=== PATIENT | female | born 1995 | race Caucasian/White ===

== ENCOUNTER 2018-01-14 03:36 | Inpatient (IN) | payer BC ==
[~2018-01-14] VITALS: Ht 162.6 cm; Wt 57.6 kg
--- NOTE | ~2018-01-14 | PROC ---
[address] [address] PROCEDURE REPORT Name: JUVENCIO ANDERSON Room: [address] IN M.R.#: [id number] Admission: 01/14/18 Attend Phys: Agustín Abdul MD Discharge: 01/15/18 Date of : [birth year] Report #: [id number] THIS REPORT FOR: //name// For GI report, please see the Provation report in [employer] content. By: [id number] Records Staff PAULINA /RANJANA
[2018-01-14 03:46] VITALS: BP 116/60
[2018-01-14 04:07] LABS: ABSOLUTE BASOPHILS 0.1 thou/uL (0.0-0.2); ABSOLUTE EOSINOPHILS 0.3 thou/uL (0.0-0.7); ABSOLUTE LYMPHOCYTES 4.1 thou/uL (0.8-5.3); ABSOLUTE MONOCYTES 0.9 thou/uL (0.0-1.2); BASOPHILS 0.4 %; HEMATOCRIT 40.6 % (37.0-47.0); HEMOGLOBIN 13.6 gm/dL (12.0-15.0); MCH 32.3 pg (26.0-34.0); MCHC 33.4 g/dL (28.0-37.0); MCV 96.7 fL (80.0-100.0); MONOCYTES 5.4 %; MPV 8.6 fl. (7.2-11.1); NUCLEATED RBCS 0 /100WBC; PLATELET COUNT* 286 thou/uL (150-400); POLYS 67.2 %; RDW-CV 12.6 % (10.5-14.5); WBC 16.4 thou/uL (4.0-11.0)
[2018-01-14 04:20] LABS: URINE BILIRUBIN NEGATIVE (Negative); URINE BLOOD NEGATIVE (Negative); URINE CLARITY CLEAR; URINE COLOR YELLOW; URINE GLUCOSE-RANDOM NEGATIVE (Negative); URINE KETONES 1+ (Negative); URINE NITRITE-REFLEX NEGATIVE (Negative); URINE PROTEIN NEGATIVE (Negative); URINE SPECIFIC GRAVITY >= 1.030 (1.005-1.030); URINE UROBILINOGEN 0.2 E.U./dl (0.2-1.0)
[2018-01-14 04:22] LABS: CALCIUM 8.8 mg/dL (8.5-10.1); CREATININE 0.9 mg/dL (0.6-1.3)
[2018-01-14 04:26] LABS: ALBUMIN 3.7 g/dL (3.4-5.0); TOTAL BILIRUBIN 0.3 mg/dL (<0.1-1.0); TOTAL PROTEIN 7.1 g/dL (6.4-8.2)
[2018-01-14 04:28] LABS: URINE LEUKOCYTES-REFLEX 3+ (Negative)
[2018-01-14 05:32] LABS: CASTS None Seen /LPF (None Seen); CRYSTALS None Seen /LPF (None Seen); MUCUS 4-6 Moderate strn/LPF (None Seen); SQUAMOUS 4-10 Moderate /LPF (0-3); URINE RBC 0-2 Rare /HPF (0-2)
[2018-01-14 08:37] VITALS: BP 107/61
[2018-01-14 09:00] VITALS: BP 111/72
[2018-01-14 16:00] VITALS: BP 110/44
[2018-01-14 16:03] LABS: HEMATOCRIT 35.6 % (37.0-47.0); HEMOGLOBIN 11.9 gm/dL (12.0-15.0); MCH 32.9 pg (26.0-34.0); MCHC 33.6 g/dL (28.0-37.0); MCV 97.8 fL (80.0-100.0); MPV 8.6 fl. (7.2-11.1); RBC 3.64 mil/uL (4.20-5.00); WBC 8.9 thou/uL (4.0-11.0)
[2018-01-14 20:45] VITALS: BP 100/65
[2018-01-15 01:21] LABS: ABSOLUTE EOSINOPHILS 0.2 thou/uL (0.0-0.7); ABSOLUTE LYMPHOCYTES 2.3 thou/uL (0.8-5.3); ABSOLUTE MONOCYTES 0.6 thou/uL (0.0-1.2); ABSOLUTE NEUTROPHILS 5.5 thou/uL (1.6-8.1); BASOPHILS 0.4 %; EOSINOPHILS 2.2 %; HEMATOCRIT 36.9 % (37.0-47.0); HEMOGLOBIN 12.2 gm/dL (12.0-15.0); LYMPHOCYTES 26.7 %; MCH 32.6 pg (26.0-34.0); MCV 98.7 fL (80.0-100.0); MONOCYTES 7.1 %; MPV 8.8 fl. (7.2-11.1); NUCLEATED RBCS 0 /100WBC; PLATELET COUNT* 231 thou/uL (150-400); POLYS 63.6 %; RBC 3.73 mil/uL (4.20-5.00); WBC 8.7 thou/uL (4.0-11.0)
[2018-01-15 01:34] LABS: CREATININE 0.7 mg/dL (0.6-1.3); MAGNESIUM 1.9 mg/dL (1.8-2.4)
[2018-01-15 01:35] LABS: POTASSIUM 5.2 mmol/L (3.5-5.1)
[2018-01-15 06:24] VITALS: BP 100/65
[2018-01-15 08:00] VITALS: BP 102/58
[2018-01-15 10:31] VITALS: BP 106/61
[2018-01-15 14:20] VITALS: BP 106/61
--- NOTE | 2018-02-05 12:52 | CON ---
[address] [address] CONSULTATION Name: MONICAJUVENCIO GRABIEL Room: [address] IN M.R.#: [id number] Admission: 01/14/18 Attend Phys: Agustín Abdul MD Discharge: 01/15/18 Date of : [birth year] Report #: [id number] THIS REPORT FOR: //name// CC: Agustín Camara DATE OF SERVICE: 01/14/2018 HISTORY OF PRESENT ILLNESS: This is a pleasant 22-year-old female with no significant past medical history who is presenting to the hospital after one day of sharp abdominal pain. The patient reports the pain started while she was watching TV at night and was sudden in onset. The patient reports pain is sharp, cramping in nature and located in the suprapubic region. The patient initially thought this was some sort of abdominal cramp and was going to resolve by itself, but the pain did not, had progressively worsened. The patient also reports subjective fever, which lasted for 1 day along with some chills. The patient denies any nausea, vomiting, diarrhea, hematemesis or hematochezia. The patient reports taking NSAIDs on a fairly regular basis at least a few days a week. PAST MEDICAL HISTORY: No significant past medical history. PAST SURGICAL HISTORY: No significant past surgical history. FAMILY HISTORY: Negative for inflammatory bowel disease or colon cancer. SOCIAL HISTORY: The patient denies smoking, alcohol or recreational drug use. REVIEW OF SYSTEMS: A comprehensive 10-point review of systems is negative except for what was mentioned in the HPI. PHYSICAL EXAMINATION: VITAL SIGNS: Temperature 36.8, pulse rate 75, respirations 12, blood pressure 110/44, pulse ox 97%. GENERAL: The patient is alert, awake, oriented x 3. HEENT: Pupils are equal, round, reactive to light and accommodation. Mucous membranes are moist. There is no congestion. LUNGS: Clear to auscultation bilaterally. CARDIOVASCULAR: Rate and rhythm regular, S1, S2 present. ABDOMEN: Soft. There is no tenderness, no guarding, no rigidity. EXTREMITIES: Warm and well perfused. SKIN: Warm and dry. There is no focal neurological deficit. LABORATORY DATA: Hemoglobin 10.6, hematocrit 35.6, platelet count 212, WBC count 8.9. Sodium 137, potassium ____ chloride 102, bicarbonate 23, BUN 10, creatinine ____ AST 14, ALT 16, alkaline phosphatase 74, lipase [place] [address] CONSULTATION Name: JUVENCIO ANDERSON Room: [address]#: [id number] Admission: 01/14/18 Attend Phys: Agustín Abdul MD Discharge: 01/15/18 Date of : [birth year] Report #: [id number] positive for ketones, wbc and leukocyte esterase. Urine hCG negative. IMAGING DATA: Abdominal and pelvis CT demonstrates dilation of the proximal duodenum, component of obstruction not excluded. ASSESSMENT AND PLAN: This is a pleasant 22-year-old female with no significant past medical history who is presenting with acute onset of suprapubic abdominal pain. The patient was found to have a urinary tract infection and additionally CT demonstrates dilation of the duodenal bulb. The patient has a significant history of nonsteroidal antiinflammatory drug intake and it is possible ____ small bowel. I would perform ____ make the patient n.p.o. after midnight. <ELECTRONICALLY SIGNED> By: Keith Bell MD 02/05/18 [id number] Bell MD /nt
--- NOTE | 2018-02-07 15:01 | PATH ---
[address] [address] PATHOLOGY RPT PROCEDURE Name: JUVENCIO MALDONADO Room: [address] IN M.R.#: [id number] Admission: 01/14/18 Date of : [birth year] Discharge: 01/15/18 Report #: [id number] Path Case #: [id number] [facility] Accession Number: [id number] . 01 Material submitted: . GASTRIC BIOPSY R/O H-PYLORI . 01 Clinical history: . None provided . 02 Diagnosis: Gastric, biopsy: - Chronic inactive gastritis. - An H. pylori immunostain is negative (block A1; appropriate control). (MAP:pit 01/16/2018) QTP/01/16/2018 . 02 Electronically signed: . Baudilio Luther MD, Pathologist NPI- [id number] . 01 Gross description: . Received in formalin labeled "Juvencio Maldonado, gastric biopsy, rule out H. pylori," are 3 segments of hay soft tissue measuring 1.3 x 0.9 x 0.2 cm in aggregate dimensions and ranging from 0.3 to 0.8 cm in maximum dimension. The specimen is submitted entirely in cassette A1. (TSD; 01/15/2018) TOB/TOB . 02 Pathologist provided ICD-10: K29.50 . 02 CPT . 800554, Q04308 Specimen Comment: Report sent to ,DR KELLEY / DR CROUCH Performed at: [address], [place], [place] [id number] MD Burt Escalona MD Phone: [phone] Performed at: [address] [facility] [address] [facility] , [place], [place] [id number] MD Jus Peña MD Phone: [phone]
== END 2018-01-15 15:00 | disposition home or self-care (01) | DRG 389 ==
LOC: M.ERS 03:36 → M.TBA-ER 06:24 → M.ORTHSURG 06:24
PROVIDERS: Family Medicine; Internal Medicine Gastroenterology; ADMIT Internal Medicine
PROC: 0DB68ZX Excision of Stomach, Via Natural or Artificial Opening Endoscopic, Diagnostic (ICD-10-PCS; principal; 2018-01-15)
DX: K56.609 Unspecified intestinal obstruction, unspecified as to partial versus complete obstruction (principal); N39.0 Urinary tract infection, site not specified; K31.9 Disease of stomach and duodenum, unspecified; F17.210 Nicotine dependence, cigarettes, uncomplicated; E87.6 Hypokalemia; Z79.1 Long term (current) use of non-steroidal anti-inflammatories (NSAID); Z79.899 Other long term (current) drug therapy